=== PATIENT | female | born 1965 | race African-American/Black ===

== ENCOUNTER 2016-10-08 06:33 | Emergency (ER) | payer MEDICAID ==
[2016-10-08] MEDS ORDERED: ALBUTEROL SULFATE 0.083% NEB 2.5 MG/3 ML AMPUL NEB ONE (07:35)
--- NOTE | 2016-10-08 07:36 | ER Document Report ---
ED General - General Mode of Arrival: Ambulatory Information source: Patient TRAVEL OUTSIDE OF THE [place] IN LAST 30 DAYS: No - HPI Patient complains to provider of: Breathing difficulty Onset: Yesterday Onset/Duration: Gradual, Persistent Associated symptoms: Chest pain - associated with cough, Nonproductive cough, Diarrhea, Shortness of breath - associated with cough. denies: Nausea, Vomiting - General Chief Complaint: Breathing Difficulty Stated Complaint: DIFFICULTY BREATHING Notes: Patient is a 51-year-old female presenting to the emergency department concerned of difficulty breathing onset 20:00 last night. Patient states that she was dizzy and felt like she was about to faint at that time. Patient denies weakness, but states she was off balance. Patient also complains of diarrhea, joint pain, cough and associated shortness of breath and chest pain. Patient denies any dysuria, incontinence, vomiting, or nausea. Patient is a former smoker and has a history of asthma. (ROGER MICHELLE) - Related Data Allergies/Adverse Reactions: acetaminophen [From Vicodin] Allergy (Verified 07/24/16 17:28) Nausea hydrocodone bitartrate [From Vicodin] Allergy (Verified 07/24/16 17:28) Nausea Past Medical History - General Information source: Patient, Emergency Med Personnel - Social History Smoking Status: Former Smoker Chew tobacco use (# tins/day): No Frequency of alcohol use: None Drug Abuse: None Family History: Reviewed & Not Pertinent Patient has suicidal ideation: No Patient has homicidal ideation: No - Past Medical History Cardiac Medical History: Reports: Hx Hypertension Pulmonary Medical History: Reports: Hx Asthma, Hx Bronchitis Neurological Medical History: Reports: Hx Migraine Psychiatric Medical History: Reports: Hx Depression Past Surgical History: Reports: Hx Orthopedic Surgery - left hip, Hx Tubal Ligation - Immunizations Hx Diphtheria, Pertussis, Tetanus Vaccination: No Review of Systems - Review of Systems Constitutional: No symptoms reported. denies: Weakness EENT: No symptoms reported Cardiovascular: See HPI, Chest pain - with cough Respiratory: See HPI, Cough, Short of breath - with cough Gastrointestinal: No symptoms reported Genitourinary: No symptoms reported. denies: Dysuria Female Genitourinary: No symptoms reported Musculoskeletal: No symptoms reported Physical Exam - Vital signs Interpretation: Normal - General General appearance: Alert In distress: None - HEENT Head: Normocephalic, Atraumatic Eyes: Normal Pupils: PERRL - Respiratory Respiratory status: No respiratory distress Chest status: Nontender Breath sounds: Wheezing - Mild expiratory wheeze Chest palpation: Normal - Cardiovascular Rhythm: Regular Heart sounds: Normal auscultation Murmur: No - Abdominal Inspection: Normal Distension: No distension Bowel sounds: Normal Tenderness: Nontender Organomegaly: No organomegaly - Back Back: Normal, Nontender - Psychological Associated symptoms: Normal affect, Normal mood - Skin Skin Temperature: Warm Skin Moisture: Dry Skin Color: Normal - Vital signs Vitals: Pulse Ox 98 10/08/16 06:42 (WIL SHEETS) (ROGER MICHELLE) Course - Re-evaluation Re-evalutation: 10/08/16 09:20 I personally performed the services described in the documentation, reviewed and edited the documentation which was dictated to my scribe in my presence, and it accurately records my words and actions. Jaz presents the emergency department with a 12 hour history of cough nonproductive of sputum history of asthma little bit of wheezing no shortness of breath chest pain pressure or anything consistent with exertional PE or MA. About month ago she had bronchitis took amoxicillin it's resolved now. She is not hypoxic blood pressures little elevated on arrival she hasn't taken her medication yet today. She is well-appearing nontoxic occasional expiratory wheezes significantly improved with breathing treatments chest x-ray urine flu all negative for acute infection. We'll DC upper restrain illness supportive care prednisone she has her albuterol inhaler home follow primary care physician in one to 2 days return for increasing worsening or new symptoms (WIL SHEETS) - Vital Signs Vital signs: Temp Pulse Resp BP Pulse Ox 97.7 F 69 16 138/90 H 100 10/08/16 09:32 10/08/16 09:32 10/08/16 09:32 10/08/16 09:32 10/08/16 09:32 (WIL SHEETS) (ROGER MICHELLE) - Laboratory Laboratory results interpreted by me: 10/08/16 07:45 Ur Leukocyte Esterase TRACE H (WIL SHEETS) Scribe Documentation - Scribe Written by Scribmarianne:: Roger Michelle 10/08/2016 07:35 acting as scribe for :: Antony
[2016-10-08 08:20] LABS: APPEARANCE,URINE CLEAR; BILIRUBIN,URINE NEGATIVE (NEGATIVE); GLUCOSE, URINE NEGATIVE (NEGATIVE); KETONES,URINE NEGATIVE (NEGATIVE); LEUKOCYTE ESTERASE,URINE TRACE (NEGATIVE); NITRITE,URINE NEGATIVE (NEGATIVE); PROTEIN,URINE NEGATIVE (NEGATIVE); URINE SPECIFIC GRAVITY 1.013; UROBILINOGEN,URINE NEGATIVE mg/dL (<2.0)
--- NOTE | 2016-10-08 09:03 | EKG REPORT ---
SEVERITY:- ABNORMAL ECG - ACCELERATED JUNCTIONAL RHYTHM BORDERLINE T WAVE ABNORMALITIES BORDERLINE PROLONGED QT INTERVAL : Confirmed by: Trevin Duron MD 08-Oct-2016 09:03:01
[2016-10-08 09:34] VITALS: BP 138/90
--- NOTE | 2016-10-25 20:49 | ER Document Report ---
Doctor's Note Notes: 10/25/16 20:48 diagnosis 1. acute asthma exacerbation 2. acute upper respiratory illness
== END 2016-10-08 09:32 | disposition home or self-care (01) ==
LOC: ER 06:33
DX: J45.901 Unspecified asthma with (acute) exacerbation (principal); J06.9 Acute upper respiratory infection, unspecified; R06.02 Shortness of breath; R07.89 Other chest pain; R19.7 Diarrhea, unspecified; R42 Dizziness and giddiness; M25.50 Pain in unspecified joint; I10 Essential (primary) hypertension; Z87.891 Personal history of nicotine dependence; Z88.5 Allergy status to narcotic agent
CPT/HCPCS: 71010; 81001; 87804; 93005; 93010; 94640; 99285